=== PATIENT | female | born 1980 | race African-American/Black ===

== ENCOUNTER 2016-08-23 00:02 | Emergency (ER) | payer OTHER ==
[~2016-08-23] VITALS: Ht 167.6 cm; Wt 72.6 kg
[2016-08-23] MEDS ORDERED: ALBUTEROL2.5 MG/3 M INH (00:14)
[2016-08-23 00:46] VITALS: BP 131/67
[2016-08-23 01:21] LABS: APPEARANCE,URINE CLEAR; KETONES,URINE NEGATIVE (NEGATIVE); LEUKOCYTE ESTERASE ,URINE 2+ (NEGATIVE); NITRITE,URINE NEGATIVE (NEGATIVE); PH,URINE 7 (4.5-8.0); PROTEIN,URINE NEGATIVE (NEGATIVE); UROBILINOGEN,URINE 4 MG/DL (0.0-1.0)
[2016-08-23 01:35] LABS: BACTERIA,URINE FEW /HPF; RBC,URINE 0-2 /HPF (0 - 2); SQUAMOUS EPITHELIAL CELL,UR MODERATE /LPF (NONE/OCC)
[2016-08-23 01:55] VITALS: BP 127/77
[2016-08-23] MEDS ORDERED: PHENAZOPYRIDIN200 MG ORAL (01:59)
[2016-08-23] MEDS ORDERED: NITROFURANTOIN100 M2 ORAL (01:59)
[2016-08-23] MEDS ORDERED: Ketorolac 30mg Inj IV ONE (02:00)
[2016-08-23 02:27] VITALS: BP_SYST 116; BP_SYST 127; BP_DIAS 70; BP_DIAS 77
--- NOTE | 2016-08-23 03:27 | Emergency Room Report ---
History of Present Illness General Chief Complaint: Abdominal Pain Source: Patient Present Illness HPI 35 YO F with suprapubic discomfort, polyuria, dysuria for 2-3 days. Had right ovarian cyst removal previously. No other significant surgical history. Assoc with nausea. Denies vomiting, diarrhea, fever/chills. Denies other medical problems. Denies sick contacts. Allergies: Coded Allergies: No Known Allergies (Unverified , 08/23/16) Patient History Past Medical History: none Past Surgical History: none Pertinent Family History: none Social History: Denies: alcohol use, drug use, smoking Now: No : 6 Para: 4 Reviewed Nursing Documentation: PMH: Agreed, PSxH: Agreed Nursing Documentation-PMH Hx Asthma: Yes Review of Systems All Other Systems: negative except mentioned in HPI Physical Exam Vital Signs Date Time Temp Pulse Resp B/P Pulse Ox O2 Delivery O2 Flow Rate FiO2 08/23/16 00:10 98.1 64 14 116/75 99 Room Air Sp02 EP Interpretation: reviewed, normal General Appearance: normal inspection, well appearing, no apparent distress, alert Head: normocephalic, atraumatic Eyes: bilateral eye EOMI, bilateral eye PERRL ENT: normal ENT inspection, hearing grossly normal, normal voice Neck: normal inspection, full range of motion, supple, no bony tend Respiratory: normal inspection, lungs clear, normal breath sounds, no respiratory distress, no retraction, no wheezing Cardiovascular #1: regular rate, rhythm, no edema Gastrointestinal: normal inspection, normal bowel sounds, non tender, soft, no guarding, no hernia Genitourinary: no CVA tenderness Musculoskeletal: normal inspection, back normal, normal range of motion, Abhilash' s Sign negative Neurologic: normal inspection, alert, oriented x3, responsive, matrix plater III-XII nml as tested, motor strength/tone normal, speech normal Psychiatric: normal inspection, judgement/insight normal, mood/affect normal Skin: normal inspection, normal color, no rash Medical Decision Making Diagnostic Impression: Primary Impression: UTI (urinary tract infection) Qualified Codes: N30.00 - Acute cystitis without hematuria ER Course 35 YO F with suprapubic discomfort. VSS. Afebrile. No systemic symptoms UA with multiple WBCs Likely UTI Analgesia and anti-emitic provided in ED Rx Macrobid PMD followup DC home Last Vital Signs Date Time Temp Pulse Resp B/P Pulse Ox O2 Delivery O2 Flow Rate FiO2 08/23/16 02:27 98.1 61 13 116/70 100 Room Air Status: improved Disposition: HOME, SELF-CARE Condition: Improved Scripts Phenazopyridine Hcl* (PYRIDIUM*) 200 Mg Tablet 200 MG ORAL THREE TIMES A DAY for 2 Days, #6 TAB 0 Refills Prov: SHANE LOCKHART M.D. 08/23/16 Nitrofurantoin Monohyd/M-Cryst* (MACROBID 100 MG*) 100 Mg Capsule 100 MG ORAL EVERY 12 HOURS for 7 Days, #14 CAP Prov: SHANE LOCKHART M.D. 08/23/16 Referrals: [employer],REFERRIN (PCP) Patient Instructions: Abdominal Pain, Adult Additional Instructions: - Take ALL antibiotics as prescribed - Macrobid - Take pyridum as needed for 2 days for painful urination - Follow up with your doctor in 2-3 days SHANE LOCKHART M.D. Aug 23, 2016 03:27
== END 2016-08-23 02:30 | disposition home or self-care (01) ==
LOC: EMR 00:55
DX: N39.0 Urinary tract infection, site not specified (principal); N30.00 Acute cystitis without hematuria; R10.9 Unspecified abdominal pain; R35.8 Other polyuria; R30.0 Dysuria; J45.909 Unspecified asthma, uncomplicated
CPT/HCPCS: 81003; 81025; 87086; 87181; 96374; 99284; J1885

== ENCOUNTER 2016-09-03 13:02 | Emergency (ER) | payer OTHER ==
[~2016-09-03] VITALS: Ht 167.6 cm; Wt 72.6 kg
[~2016-09-03 13:02] MED LIST: ALBUTEROL2.5 MG/3 M INH; NITROFURANTOIN100 M2 ORAL; PHENAZOPYRIDIN200 MG ORAL
[2016-09-03 13:45] VITALS: BP 112/83
[2016-09-03 14:19] LABS: APPEARANCE,URINE SLIGHTLY CLOUDY; KETONES,URINE NEGATIVE (NEGATIVE); LEUKOCYTE ESTERASE ,URINE 3+ (NEGATIVE); NITRITE,URINE NEGATIVE (NEGATIVE); PH,URINE 6 (4.5-8.0); PROTEIN,URINE NEGATIVE (NEGATIVE); UROBILINOGEN,URINE 1 MG/DL (0.0-1.0)
[2016-09-03 14:29] LABS: BACTERIA,URINE FEW /HPF; SQUAMOUS EPITHELIAL CELL,UR MANY /LPF (NONE/OCC); WBC,URINE 30-40 /HPF (0 - 2)
[2016-09-03 14:30] LABS: ICTOTEST NEGATIVE
[2016-09-03] MEDS ORDERED: CIPROFLOXACIN500 M2 ORAL (14:47)
[2016-09-03 15:00] VITALS: BP 112/83
--- NOTE | 2016-09-03 18:38 | Emergency Room Report ---
History of Present Illness General Chief Complaint: Vaginal Source: Patient Present Illness HPI The patient is a 35 old female presenting with lower abdominal pain and dysuria which began 2 weeks prior. The patient was seen in this emergency department one week prior and diagnosed with a UTI. The patient was discharged home with a prescription for macrobid and pyridium. The patient reports no decrease in symptoms. The pain is described as a 10 out of 10 burning which occurs only with urination. The patient also admits to increased white vaginal discharge. The pt denies hematuria, N, V, F, chills, flank pain, dizziness, CP, SOB Allergies: Coded Allergies: No Known Allergies (Unverified , 08/23/16) Patient History Past Medical History: see triage record Pertinent Family History: none Last Menstrual Period: none Now: No Immunizations: UTD Reviewed Nursing Documentation: PMH: Agreed, PSxH: Agreed Nursing Documentation-PMH Past Medical History: No History, Except For Hx Asthma: Yes Review of Systems All Other Systems: negative except mentioned in HPI Physical Exam Vital Signs Date Time Temp Pulse Resp B/P Pulse Ox O2 Delivery O2 Flow Rate FiO2 09/03/16 13:39 97.5 79 18 112/83 100 Room Air Sp02 EP Interpretation: reviewed, normal General Appearance: no apparent distress, alert, GCS 15, non-toxic Head: normocephalic, atraumatic Eyes: bilateral eye PERRL, bilateral eye normal inspection ENT: hearing grossly normal, normal pharynx, no angioedema, normal voice Gastrointestinal: normal bowel sounds, soft, no mass, non-distended, no guarding, tenderness - suprapubic Genitourinary: normal inspection, no CVA tenderness Musculoskeletal: back normal, gait/station normal, normal range of motion, non- tender Neurologic: alert, oriented x3, responsive, motor strength/tone normal, sensory intact, speech normal Psychiatric: judgement/insight normal, memory normal, mood/affect normal, no suicidal/homicidal ideation Medical Decision Making PA Attestation Dr. Anaya is my supervising physician. Patient management was discussed with my supervising physician Diagnostic Impression: Primary Impression: UTI (urinary tract infection) ER Course The patient is a 35 old female presenting with lower abdominal pain and dysuria which began 2 weeks prior. Differential diagnosis considered but not limited to: UTI, vaginitis, pyelonephritis, PID, ectopic PE: Vitals WNL. NAD. Abd: soft, normal BS. TTP only over suprapubic region. Otherwise unremarkable. UA: consistent with UTI The pt's microbiology report from last visit was examined and the pt will be placed on ciprofloxacin. ER precautions given Laboratory Tests Test 09/03/16 14:05 Urine Color [place] Urine Appearance Slightly cloudy Urine pH 6 (4.5-8.0) Urine Specific [place] 1.025 (1.005-1.035) Urine Protein Negative (NEGATIVE) Urine Glucose (UA) Negative (NEGATIVE) Urine Ketones Negative (NEGATIVE) Urine Occult Blood 2+ (NEGATIVE) H Urine Nitrite Negative (NEGATIVE) Urine Bilirubin 1+ (NEGATIVE) H Urine Ictotest Negative Urine Urobilinogen 1 MG/DL (0.0-1.0) H Urine Leukocyte Esterase 3+ (NEGATIVE) H Urine RBC 2-4 /HPF (0 - 2) H Urine WBC 30-40 /HPF (0 - 2) H Urine Squamous Epithelial Cells Many /LPF (NONE/OCC) H Urine Bacteria Few /HPF (NONE) Urine HCG, Qualitative Negative Lab Results Impression Consistent with UTI. Neg preg Last Vital Signs Date Time Temp Pulse Resp B/P Pulse Ox O2 Delivery O2 Flow Rate FiO2 09/03/16 15:00 97.5 18 112/83 100 Room Air 09/03/16 13:45 79 Status: improved Disposition: HOME, SELF-CARE Condition: Improved Scripts Ciprofloxacin Hcl* (CIPROFLOXACIN HCL*) 500 Mg Tablet 500 MG ORAL EVERY 12 HOURS, #20 TAB 0 Refills Prov: DELVIS PARRISH 09/03/16 Referrals: [employer] [facility],REFERRIN (PCP) Patient Instructions: Urinary Tract Infection Additional Instructions: I discussed my findings with the patient. All questions and concerns have been answered. Treatment and medication compliance have been addressed. I advised the patient that they need to follow up with PMD in 3-5 days. Return to ED if symptoms worsen, new symptoms arise, or if needed for any reason. Patient verbalized understanding of discharge instructions. DELVIS PARRISH Sep 03, 2016 18:38
== END 2016-09-03 15:00 | disposition home or self-care (01) ==
LOC: EMR 14:05
DX: N39.0 Urinary tract infection, site not specified (principal); M54.5 Low back pain; Z87.09 Personal history of other diseases of the respiratory system
CPT/HCPCS: 81003; 81025; 87086; 87181; 99282